=== PATIENT | male | born 1980 | race African-American/Black ===

== ENCOUNTER 2018-05-08 16:01 | Emergency (ER) | payer MEDICARE, MEDICAID ==
[~2018-05-08] VITALS: Ht 175.3 cm; Wt 80.0 kg
[2018-05-08 16:50] VITALS: BP 112/63
== END 2018-05-08 16:55 | disposition home or self-care (01) ==
LOC: ER 16:01
DX: Z00.00 Encounter for general adult medical examination without abnormal findings (principal); F99 Mental disorder, not otherwise specified; F17.210 Nicotine dependence, cigarettes, uncomplicated; Z71.6 Tobacco abuse counseling; Z91.14 Patient's other noncompliance with medication regimen
CPT/HCPCS: 99283; 99406

== ENCOUNTER 2020-03-08 01:19 | Emergency (ER) | payer MEDICARE, MEDICAID ==
[~2020-03-08] VITALS: Ht 177.8 cm; Wt 86.0 kg
[2020-03-08 02:58] LABS: BASOPHILS % 0.4 % (0.0-2.0); EOSINOPHILS % 1.5 % (0.0-5.0); HEMATOCRIT. 49.1 % (42.0-52.0); HEMOGLOBIN. 16.9 g/dL (14.0-18.0); LYMPHOCYTES % 39.3 % (20.0-50.0); MEAN CORPUSCULAR HEMOGLOBIN 33.9 pg (28.0-32.0); MEAN CORPUSCULAR VOLUME 98.2 fL (80.0-94.0); MEAN PLATELET VOLUME 7.9 fl (7.4-10.4); MONOCYTES % 7.6 % (2.0-8.0); NEUTROPHILS % 51.2 % (40.0-76.0); PLATELET 226 x1000/uL (130-400); RED CELL DISTRIBUTION WIDTH 13.8 % (11.6-14.6)
[2020-03-08 03:03] LABS: CHLORIDE 112 mEq/L (98-107)
[2020-03-08 03:08] LABS: ETHANOL BLOOD 79 mg/dL
[2020-03-08 04:19] LABS: *AMPHETAMINES SCREEN URINE NEGATIVE (NEGATIVE); *BARBITURATES SCREEN URINE NEGATIVE (NEGATIVE); *BENZODIAZEPINES SCREEN URINE NEGATIVE (NEGATIVE); *COCAINE SCREEN URINE NEGATIVE (NEGATIVE)
[2020-03-08 04:20] LABS: CANNABINOID URINE SCREEN PRESUMTIVE POSITIVE (NEGATIVE); METHADONE URINE SCREEN NEGATIVE (NEGATIVE); OPIATES URINE SCREEN NEGATIVE (NEGATIVE); PHENCYCLIDINE URINE SCREEN NEGATIVE (NEGATIVE)
[2020-03-08 10:38] VITALS: BP 118/79
== END 2020-03-08 11:30 | disposition home or self-care (01) ==
LOC: ER 01:19
DX: F20.9 Schizophrenia, unspecified (principal); F12.10 Cannabis abuse, uncomplicated; F10.10 Alcohol abuse, uncomplicated; F17.210 Nicotine dependence, cigarettes, uncomplicated; Y90.3 Blood alcohol level of 60-79 mg/100 ml
CPT/HCPCS: 36415; 80053; 80305; 80307; 80320; 80329; 85025; 93005; 99285; G0480

== ENCOUNTER 2020-10-14 22:22 | Emergency (ER) | payer MEDICAID, MEDICARE ==
[~2020-10-14] VITALS: Ht 177.8 cm; Wt 77.0 kg
[2020-10-14] MEDS ORDERED: ONDANSETRON 4MG ODT PO STA (22:38)
[2020-10-15 01:09] LABS: BASOPHILS % 0.4 % (0.0-2.0); EOSINOPHILS % 3.6 % (0.0-5.0); HEMATOCRIT. 42.4 % (42.0-52.0); HEMOGLOBIN. 14.6 g/dL (14.0-18.0); LYMPHOCYTES % 46.7 % (20.0-50.0); MEAN CORPUSCULAR HEMOGLOBIN 32.7 pg (28.0-32.0); MEAN CORPUSCULAR VOLUME 94.8 fL (80.0-94.0); MEAN PLATELET VOLUME 7.1 fl (7.4-10.4); MONOCYTES % 6.4 % (2.0-8.0); NEUTROPHILS % 42.9 % (40.0-76.0); PLATELET 272 x1000/uL (130-400); RED BLOOD CELL COUNT 4.48 mill/uL (4.7-6.1); RED CELL DISTRIBUTION WIDTH 12.7 % (11.6-14.6)
[2020-10-15 01:16] LABS: CHLORIDE 110 mEq/L (98-107)
[2020-10-15 01:19] LABS: ETHANOL BLOOD 290 mg/dL
[2020-10-15] MEDS ORDERED: ONDANSETRON 4MG ODT PO NR (04:45)
[2020-10-15 05:26] VITALS: BP 148/80
== END 2020-10-15 05:28 | disposition home or self-care (01) ==
LOC: ER 22:22
DX: G93.40 Encephalopathy, unspecified (principal); T51.94XA Toxic effect of unspecified alcohol, undetermined, initial encounter; F12.10 Cannabis abuse, uncomplicated; I49.9 Cardiac arrhythmia, unspecified; Z86.59 Personal history of other mental and behavioral disorders; Y92.9 Unspecified place or not applicable
CPT/HCPCS: 36415; 80048; 80320; 85025; 93005; 99285; Q0162; G0480